=== PATIENT | male | born 1980 | race Caucasian/White ===

== ENCOUNTER 2022-11-04 08:09 | Outpatient (CLI) | payer SELFPAY | END 2022-11-04 08:10 | disposition home or self-care (01) | LOC: CSHCT 08:09 | PROVIDERS: ATTEND Urology | DX: N20.0 Calculus of kidney (principal); N13.8 Other obstructive and reflux uropathy; N20.2 Calculus of kidney with calculus of ureter; K80.20 Calculus of gallbladder without cholecystitis without obstruction | CPT/HCPCS: 74176 ==